=== PATIENT | male | born 1970 | race Caucasian/White ===

== ENCOUNTER 2017-02-09 19:05 | Emergency (ER) | payer BC ==
[2017-02-09] MEDS ORDERED: METHYLPREDNISOLONE SOD SUCC/PF 40 MG/ML VIAL IM ONE (19:35)
[2017-02-09] MEDS ORDERED: HYDROmorphone HCL 1 MG/ML DISP.SYRIN IM ONE (19:36)
[2017-02-09] MEDS ORDERED: METHYLPREDNISOLONE SOD SUCC/PF 40 MG/ML VIAL ONE (19:41)
[2017-02-09] MEDS ORDERED: HYDROmorphone HCL 1 MG/ML DISP.SYRIN ONE (19:41)
--- OUTSIDE RECORDS SUMMARY | 2017-02-09 19:45 | XMS REPORT | Clinical Summary ---
:1970 Author Organization [facility] [place] [address] Care Team Providers Name Role Phone Unavailable Primary Care Provider Unavailable Source Comments This disclosure is being made pursuant to the [employer] program and maynot contain all information available regarding this patient.[facility] Allergies Not on File Current Medications Be aware that medications may not be up to date as of this document. Alwaysverify current medications with the patient. Not on file Active Problems Not on file Social History Tobacco Use Types Packs/Day Years Used Date Never Assessed Sex Assigned at Date Recorded Not on file Last Filed Vital Signs Not on file Plan of Treatment Health Maintenance Due Date Last Done Comments Retired-Pertussis Vaccine Adult 1987 Retired-Tetanus Vaccine Adult 1987 Retired-INFLUENZA VACCINE 03/18/2015 Results Not on filefrom Last 3 Months
--- NOTE | 2017-02-09 20:29 | ERNOTE ---
Back Pain ER HPI Date of Service: 02/09/17 Time Seen by Provider: 02/09/17 19:31 Immunizations: IMMUNIZATION HX Immunizations Up to Date Yes History of Influenza Vaccine No Hx Pneumococcal Vaccination No Allergies/Adverse Reactions: Allergies Penicillins Allergy (Verified 02/09/17 19:24) Home Medications: HOME MEDICATIONS predniSONE [Prednisone] See Taper PO DAILY #18 tablet 02/09/17 [Last Taken Unknown] - Patient's Past Medical History Patient History - Medical: Alcohol Abuse Patient History - Cardiac/Respiratory: No pertinent hx Patient History - Cancer: No Hx of Cancer Patient History - Surgical Procedures: Total Knee Replacement, Orthopedic Patient History - Other: None - Social History Living Situations: significant other Abuse History: No History of abuse Psych History: No pertinent hx Smoking Status: Current every day smoker Have you smoked in the past 12 months: Yes Do you dip or chew tobacco: No Alcohol Use: heavy Drug Use: none - Immunizations Immunizations Up to Date: Yes Hx Pneumococcal Vaccination: No History of Influenza Vaccine: No ED Progress - Vital Signs Vital Signs: Vital Signs 02/09/17 19:19 Temperature 37.2 C Pulse Rate 88 Respiratory 14 Rate Blood Pressure 120/70 O2 Sat by Pulse 96 Oximetry - Progress/Reassessment Chief Complaint: Back Pain Departure Clinical Impression: Sciatic leg pain - Departure Disposition: Home self-care Condition: Stable Instructions: Sciatica With Rehab-SportsMed, Sciatica, [id number], RICE for Routine Care of Injuries, [id number] Additional Instructions: Continue previous home medications. Follow-up with your primary care provider or obtain a primary care provider in the next few days. Take steroid taper as directed. Return to the emergency room if symptoms return or persist. Prescriptions: predniSONE [Prednisone] See Taper PO DAILY #18 tablet
[2017-02-09 20:40] VITALS: BP 103/61
== END 2017-02-09 20:38 | disposition home or self-care (01) ==
LOC: ER 19:05
DX: M54.31 Sciatica, right side (principal); F17.200 Nicotine dependence, unspecified, uncomplicated